=== PATIENT | female | born 1985 | race Caucasian/White ===

== ENCOUNTER 2020-01-13 08:58 | Inpatient (IN) | payer OTHER ==
[~2020-01-13] VITALS: Ht 162.6 cm; Wt 122.5 kg
--- NOTE | ~2020-01-13 | O ---
[facility] [place] [address] OPERATIVE REPORT Name: ADONIS SCHMITT Room #: 447-P ADM IN M.R.#: [id number] Admission: 01/13/20 Attend Phys: Niya Mendez Discharge: Date of : 87 Report #: [id number] THIS REPORT FOR: cc: Everardo Gonzalez MD,Everardo Ludwig,Jorge Zavala MD ~ CC: Dioni Gonzalez DATE OF SERVICE: 01/15/2020 PREOPERATIVE DIAGNOSIS: Gallstone pancreatitis. POSTOPERATIVE DIAGNOSIS: Gallstone pancreatitis. OPERATION: Laparoscopic cholecystectomy with intraoperative cholangiogram. SURGEON: Jorge Ludwig MD ANESTHESIA: General. ESTIMATED BLOOD LOSS: Minimal. SPECIMEN: Gallbladder. DESCRIPTION OF PROCEDURE: After informed consent was obtained, the patient was brought to the operating room and placed supine. SCDs were placed and working, preoperative antibiotics were administered, general anesthesia was induced. The abdomen was prepped and draped in the usual sterile fashion. A 10 mm incision was made above the umbilicus. Fascia was incised and a trocar was placed. Pneumoperitoneum was established. Three right upper quadrant 5 mm ports were placed. Gallbladder was grasped at the fundus and retracted cephalad. Infundibulum was grasped and retracted laterally. I dissected out the cystic duct and cystic artery. The cystic duct was clipped. A ductotomy was made. Cholangiogram catheter was inserted and a cholangiogram was performed. This demonstrated filling of the cystic duct, common bile duct, common hepatic duct, bifurcation of the hepatics, smooth flow into the duodenum. There were no filling defects. This was normal. Cholangiogram catheter was then removed. The cystic duct was clipped and ligated leaving a clip and a PDS Endoloop on the remaining duct. Cystic artery was clipped and ligated leaving a clip on the remaining artery. Gallbladder was then taken off the liver bed with electrocautery. It was placed into an Endopouch and removed. The fascia was then closed with a [id number] 0 Vicryl. Skin was closed with 4-0 Monocryl. Incisions were sealed with [facility] [address] [place] [address] OPERATIVE REPORT Name: ADONIS SCHMITT Room #: 447-P [facility] IN M.R.#: [id number] Admission: 01/13/20 Attend Phys: Niya Mendez Discharge: Date of : 87 Report #: [id number] Dermabond. COMPLICATIONS: None. DISPOSITION: The patient was taken to recovery in satisfactory condition. By: 1046 [id number] Jorge Ludwig MD /nt
[~2020-01-13 08:58] MED LIST: ALLERGY10 M1 PO; LESSINA1 EACH PO; MUCINEX TA600 MG/TA2 PO; PRINIVIL20 M1 PO
[2020-01-13 09:08] VITALS: BP 164/97
[2020-01-13] MEDS ORDERED: NIFEDIPINE ER30 M1 PO (09:15)
[2020-01-13] MEDS ORDERED: SERTRALINE HCL25 M1 PO (09:15)
[2020-01-13] MEDS ORDERED: VITAMIN D31250 MC1 PO (09:16)
[2020-01-13] MEDS ORDERED: VITAMIN C500 M1 PO (09:16)
[2020-01-13 09:39] LABS: ABSOLUTE NEUTROPHILS 6.1 thou/uL (1.4-8.2); BASOPHILS 0.8 % (0.0-2.0); EOSINOPHILS 1.5 % (0.0-3.0); HEMATOCRIT 42.9 % (37.0-47.0); HEMOGLOBIN 14.9 gm/dL (12.0-15.0); LYMPHOCYTES 19.1 % (24.0-44.0); MCH 30.6 pg (26.0-34.0); MCHC 34.7 g/dL (28.0-37.0); MCV 88.1 fL (80.0-100.0); MONOCYTES 5.3 % (1.0-8.0); PLATELET COUNT 324 thou/uL (150-400); POLYS 73.3 % (36.0-66.0); RBC 4.86 mil/uL (4.20-5.00); RDW 12.8 % (10.5-14.5); WBC 8.3 thou/uL (4.0-11.0)
[2020-01-13 09:48] LABS: CALCIUM 8.9 mg/dL (8.5-10.1); CREATININE 0.8 mg/dL (0.6-1.0); POTASSIUM 3.7 mmol/L (3.5-5.1)
[2020-01-13 09:54] LABS: ALBUMIN 4.1 g/dL (3.4-5.0); TOTAL BILIRUBIN 0.9 mg/dL (0.2-1.0); TOTAL PROTEIN 8.6 g/dL (6.4-8.2)
--- NOTE | 2020-01-13 12:21 | EKG ---
[facility] [place] [address] ELECTROCARDIOGRAM REPORT Name: MELANIE PHILLIPSNDRA JASON Room #: REG [facility].#: [id number] Admission: 01/13/20 Attend Phys: Discharge: Date of : 87 Report #: [id number] THIS REPORT FOR: cc: Everardo Gonzalez MD, Sequita MD Santiago,Bryan FRYE 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: [facility] : 1985 Requested By: Jaguar Guan Order Number: [id number] MD: Bryan Craig Measurements Intervals Asher Rate: 103 P: 55 ME: 119 QRS: 39 QRSD: 95 T: -29 QT: 335 QTc: 439 Interpretive Statements Sinus tachycardia Consider right atrial enlargement Borderline T abnormalities, diffuse leads Compared to ECG 09/29/2014 12:07:15 No significant changes Electronically Signed On 01-13-2020 12:21:19 CDT by Bryan Carig [email or web address] <ELECTRONICALLY SIGNED> By: Bryan Craig MD, FACC 01/13/20 1221 1131 1131 Bryan Craig MD, [facility] /EPI
[2020-01-13 12:41] VITALS: BP 164/97
[2020-01-13 13:06] VITALS: BP 125/74
[2020-01-13 14:44] VITALS: BP 145/98
--- NOTE | 2020-01-13 19:15 | NUR ---
PATIENT ADMITTED FROM ER WITH BILIARY COLIC, ACUTE PANCREATITIS. NO C/O PAIN OR NAUSEA THIS TIME. PATIENT HAS LEFT FOREARM IV IN PLACE. PATIENT IS UP AD MARY. AT BEDSIDE. PATIENT WILL HAVE MRI AND ULTRASOUND TOMORROW. PATIENT IS NPO AT THIS TIME. DR ADAMS CONSULTED. ADMISSION DONE, REPORT GIVEN TO PHILIP/MEL.
[2020-01-13 20:35] VITALS: BP 141/100
--- NOTE | 2020-01-14 02:42 | NUR ---
ASSESSMENT COMPLTED. PT DENIES ANY NAUSEA OR VOMITING.PT EAGER TO EAT, THOUGHT SHE SHOULD BE NPO AFTER MIDNIGHT-CALLED [employer] SUPER[employer] FOR THE HOSPITALIST BUT NO CHANGES WERE MADE. BILIARY ULTRASOUND COMPLETED.PT DUE FOR MRI IN THE MORNING. PT REMAINS UP AD MARY IN ROOM. ORDERS FOR 24 [address]LECTION IN PL[address]. FIRST VOID WAS @ 0230. WILL START COLLECTION FROM NOW ON. PT AWARE. SHE IS IN NO DISTRESS. NO DIARHOEA NOTED.IVF INFUSING.CALLS APPROPRIATELY,WILL CONTINUE WITH POC TILL EOS.
[2020-01-14 04:20] VITALS: BP 147/97
[2020-01-14 06:20] LABS: ALBUMIN 3.3 g/dL (3.4-5.0); CALCIUM 8.1 mg/dL (8.5-10.1); CREATININE 0.6 mg/dL (0.6-1.0); POTASSIUM 3.3 mmol/L (3.5-5.1); TOTAL BILIRUBIN 0.5 mg/dL (0.2-1.0); TOTAL PROTEIN 7.3 g/dL (6.4-8.2)
--- NOTE | 2020-01-14 07:13 | NUR ---
Nutrition: Pt with BMI > 40 at 46.3 kg/m2 per 270# CBW. Pt here w/ abdominal pain, likely biliary colic per H&P, also with passed gallstone, cholecystitis. Surgery is consulted. Pt remains NPO at this time, though EMR documents pt is eager to eat. Will defer weight loss education at this time, not deemed appropriate given pt acute condition and pt not eating. Will follow for timely diet advance when medically indicated.
[2020-01-14 08:00] VITALS: BP 158/114
--- NOTE | 2020-01-14 09:00 | NUR ---
ASSESSMENT: CM REVIEWED CHART AND SPOKE WITH PATIENT. PT IS HERE DUE TO CHOLECYSTITIS/ACUTE PANCREATITIS. PT REPORTS THAT SHE LIVES AT HOME WITH SIGNIFICANT OTHER IN A HOUSE. PT REPORTS ABOUT 2 STEPS TO ENTER WITH HANDRAIL AND NO STEPS SHE HAS TO USE ONCE INSIDE. PT REPORTS BEING FULLY INDEPENDENT WITH ADLS AND AMBULATION. PT DENIES HAVING HH IN THE PAST OR BEING TO A SNF. CM DISCUSSED ROLE. PT DOES NOT ANTICIPATE HAVING ANY NEEDS PRIOR TO DISCHARGE. CM WILL CONTINUE TO FOLLOW TO ASSIST NEEDED.
[2020-01-14 16:35] VITALS: BP 139/93
[2020-01-14 20:19] VITALS: BP 154/67
[2020-01-15] VITALS (8 sets, daily range): BP systolic 142–181; BP diastolic 88–117
[2020-01-15 01:06] LABS: GLYCOHEMOGLOBIN (HGB A1C) 5.2 % (4.8-5.6)
--- NOTE | 2020-01-15 01:57 | NUR ---
ASSESSED AT START OF SHIFT 1900. PT A&OX4 DENIES PAIN, N/V. UP AD MARY TO THE BATHROOM AND ON A 24HR URINE COLLECTION. IV INTACT AND FLUIDS INFUSING. PT ON FULL LIQUID DIET BUT PLACED ON NPO AFTER MIDNIGHT FOR POSSIBLE SX. CALL LIGHT IN REACH AND NO FURTHER SIGNS OF DISTRESS WILL CONT TO MONITOR.
--- NOTE | 2020-01-15 13:08 | HC ---
[facility] [place] [address] CONSULTATION Name: ADONIS SCHMITT Room #: 447-P ADM IN M.R.#: [id number] Admission: 01/13/20 Attend Phys: Niya Mendez Discharge: Date of : 87 Report #: [id number] THIS REPORT FOR: cc: Everardo Gonzalez MD,Kike Trent MD, MD ~ CC: Dioni Gonzalez DATE OF SERVICE: 01/14/2020 ENDOCRINOLOGY CONSULTATION CONSULTING PHYSICIAN: Dr. Mendez. REASON FOR CONSULTATION: An adrenal mass. HISTORY OF PRESENT ILLNESS: This is a 34-year-old female patient whose medical background is significant for intermittent gallbladder stones and inflammation that had been going on off and on for the past year since the of her son. The patient presented yesterday with intractable abdominal pain with nausea, but not vomiting. The patient was admitted for further care and monitoring. In the process of her admission, the patient received a contrasted CT scan study of the abdomen, which accidentally revealed an adrenal mass on the left side. The patient had no prior knowledge of this issue. Her background is significant for hypertension for the past few years that is well controlled on nifedipine monotherapy. She denies issues of palpitations, severe frequent headaches, frequent unprovoked abdominal cramps, significant body weight changes, excessive sweating. She does note, however, that she occasionally would feel flushed and sweaty after carb-rich meals. REVIEW OF SYSTEMS: CONSTITUTIONAL: Noted for occasional difficulties with fatigue, tiredness, a slight weight gain of 110 pounds over the past few months, but no fever or chills. HEENT: Negative for sore throat, sinus pain or ear drainage. PULMONARY: Negative for shortness of breath, cough or hemoptysis. CARDIAC: Negative for palpitations, syncope or presyncope. GASTROINTESTINAL: Noted for episodic and gallbladder pain, nausea, but no vomiting. NEUROLOGY: Negative for loss of consciousness, headaches or seizure activity. DERMATOLOGIC: Negative for rash, striae or ulceration. Otherwise, review of systems noncontributory other than those mentioned in HPI. [facility] [address] [place] [address] CONSULTATION Name: ADONIS SCHMITT Room #: 447-P [facility] IN .R.#: [id number] Admission: 01/13/20 Attend Phys: Niya Mendez Discharge: Date of : 87 Report #: [id number] PAST MEDICAL HISTORY: 1. Hypertension. 2. Depression. 3. Vitamin D deficiency. 4. Obesity. 5. History of fibroids. OUTPATIENT MEDICATIONS: Sertraline 25 mg daily, nifedipine 30 mg daily, vitamin D3 at 1000 units daily and control pills. ALLERGIES: No known drug allergies. FAMILY HISTORY: Noncontributory. SOCIAL HISTORY: She is currently not working. She is , has one child. Denies use of tobacco or alcohol. PHYSICAL EXAMINATION: GENERAL: Pleasant female patient who is not in apparent pain or distress. VITAL SIGNS: Blood pressure is 158/114 mmHg, heart rate is 85 beats per minute, respirations 16 per minute, temperature 36.8 degrees Celsius. CONSTITUTIONAL: She is sitting upright in bed, appears comfortable, not in pain or distress. HEENT: Anicteric sclerae. Intact extraocular motions. NECK: Supple, without JVD, carotid bruits or lymphadenopathy. I do not appreciate thyromegaly. CHEST: Clear to auscultation with good air entry bilaterally. No wheeze or crackles. HEART: Regular rate and rhythm without murmurs or gallops. ABDOMEN: Soft, lax. No guarding. Active bowel sounds. EXTREMITIES: Lower extremity exam is noted for trace ankle edema. No skin breaks or ulcerations. NEUROLOGIC: Awake, alert and oriented to time, place and person. The remainder of her examination is nonfocal. PSYCHIATRIC: Pleasant, interactive. Normal mood and affect and normal thought process. LABORATORY RESULTS: Sodium 139, potassium 3.3, chloride 103, CO2 of 25, anion gap 11, BUN 4, creatinine 0.6, glucose 87, AST 52, lipase 58. Total bilirubin 0.5, calcium 8.1, magnesium 2.0, alkaline phosphatase 121, ALT 73, total protein 7.3, albumin 3.3, EGFR 115. White blood count 8.3, hemoglobin 14.9, hematocrit 42.9, platelets 324. Random cortisol was 34.5. A CT scan of the abdomen and pelvis on arrival revealed a left-sided 2.6 x 1.6 cm adrenal mass with a density of 23 Hounsfield units post-contrast. Further assessment of this was conducted with an adrenal protocol MRI of the abdomen and it confirmed the presence of a [address] [place] [address] CONSULTATION Name: SCHMITTADONIS JASON Room #: 447-P [facility] IN M.R.#: [id number] Admission: 01/13/20 Attend Phys: Niya Mendez Discharge: Date of : 87 Report #: [id number] 2.7 x 1.5 cm left adrenal mass, which had Hounsfield density of 25, which is low density with contrast in addition to significant signal dropout on out of phase. This is consistent with lipid-rich benign adrenal adenoma. The mass is fairly homogenous. Enhancement shows minimal enhancement of the left adrenal mass, but then overall homogeneous appearance. The overall impression is that of a benign adenoma. ASSESSMENT AND PLAN: 1. Left adrenal mass. As noted above, the patient was accidentally found to have a left adrenal mass on arrival. I discussed this finding with the patient at length and counseled her about the implications of this finding. I explained that the scott effort at this point in time would be to assess the structure and functionality of this mass. Namely to attempt to rule out malignancy or functional aberrations. As noted above, the patient had an adrenal protocol MRI earlier today, which confirmed the outlook of a benign adenoma. I have ordered plasma metanephrine studies, aldosterone and renin levels in addition to 24-hour urine collections for metanephrines, fractionated metanephrines, catecholamines and free cortisol. Clinically, the patient does not have an outlook that is consistent with a functional adenoma. Hopefully, when this is confirmed by her pending lab studies, the patient would be then a candidate for expectant monitoring, namely in the way of annual imaging and laboratory followup for 3 consecutive years to ensure stability. 2. Hypoglycemia. The patient describes a pattern of reactive hypoglycemia, especially after coverage of meals. This could be indicative of insulin resistance and potentially prediabetes. The outlook of fatty liver is also consistent with this. I will request a hemoglobin A1c to further investigate it. The patient was counseled about the need to conduct dietary changes towards adopting a pattern of small frequent protein-rich meals instead of carb-rich meal intake. If her hemoglobin A1c is above normal limits, the patient would benefit from metformin therapy in addition to lifestyle measures. I certainly appreciate this consultation by . <ELECTRONICALLY SIGNED> By: Kike Reynoso MD 01/15/20 1308 1205 1325 Kike Reynoso MD /nt
[2020-01-15] MEDS ORDERED: HYDROCODON-ACE1 EAC7 PO (15:55)
--- NOTE | 2020-01-15 16:33 | NUR ---
Assumed care of pt. at 0700. Pt. was calm and not responsive verbally. Pt. refused potassium pill. Pt. was combative towards [employer]'s during a bed change. Pt. had two large BM's both with blood visible. Sample was collected and sent to lab for occult test. Fall precautions and sitter in place.
--- NOTE | 2020-01-15 16:54 | NUR ---
Assumed care of pt. at 0700. Pt. was calm and cooperative. Pt. was taken for surgery at 0915. Pt. arrived back on the unit at 1230. Pt. was in pain shortly after and was given hydrocodone. Pt. able to ambulate with walker and use restroom. Pt. was discharged and left with and all belongings to home. Pt. was instruct on follow up appointments and discharge instruction.
[2020-01-19 13:08] LABS: URINE FREE CORTISOL 46 ug/24 hr (6-42)
== END 2020-01-15 16:48 | disposition home or self-care (01) | DRG 417 ==
LOC: ER 08:58 → 4S 12:46 → EROBS 12:46 → 4S 13:06
PROVIDERS: Emergency Medicine; Internal Medicine; ADMIT Hospitalist; ATTEND Hospitalist
PROC: 0FT44ZZ Resection of Gallbladder, Percutaneous Endoscopic Approach (ICD-10-PCS; principal; 2020-01-15)
PROC: BF101ZZ Fluoroscopy of Bile Ducts using Low Osmolar Contrast (ICD-10-PCS; principal; 2020-01-15)
DX: K80.10 Calculus of gallbladder with chronic cholecystitis without obstruction (principal); K85.90 Acute pancreatitis without necrosis or infection, unspecified; Z68.42 Body mass index [BMI] 45.0-49.9, adult; E66.9 Obesity, unspecified; I10 Essential (primary) hypertension; F32.9 Major depressive disorder, single episode, unspecified; N85.9 Noninflammatory disorder of uterus, unspecified; E16.2 Hypoglycemia, unspecified; D35.02 Benign neoplasm of left adrenal gland; Z20.828 Contact with and (suspected) exposure to other viral communicable diseases; Z98.891 History of uterine scar from previous surgery; Z79.899 Other long term (current) drug therapy; Q63.1 Lobulated, fused and horseshoe kidney
CPT/HCPCS: 10195; 50010; 50101; 50249; 50411; 50555; 51297; 51489; 52265; 52266; 53307; 53312; 53314; 54118; 55245; 55317; 56462; 56525; 56526; 62110; 62900; 70005